=== PATIENT | male | born 1985 | race Caucasian/White ===

== ENCOUNTER → 2017-05-18 | Outpatient (REF) | payer OTHER | LOC: M LAB REF 09:11 | PROVIDERS: ATTEND Physician Assistant | DX: J02.9 Acute pharyngitis, unspecified (principal) ==

== ENCOUNTER → 2018-12-13 | Outpatient (CLI) | payer OTHER ==
--- NOTE | 2018-12-13 10:44 | REP ---
AP LATERAL LEFT HAND, TWO VIEWS: HISTORY: Foreign body. There is no acute fracture or dislocation. The joint spaces are normal in appearance. A 2.5 mm metal screw is present in the soft tissue anterior and lateral to the second metacarpal. IMPRESSION: 1. There is no acute fracture or dislocation. 2. There is a 2.4 cm metallic foreign body adjacent to the second metacarpal. Electronically Signed by Dante Ch MD 12/13/2018 10:46 A
== END ==
LOC: M WUC 09:48
PROVIDERS: ATTEND Physician Assistant
DX: S60.552A Superficial foreign body of left hand, initial encounter (principal)